=== PATIENT | female | born 1960 | race Caucasian/White ===

== ENCOUNTER 2017-09-20 17:51 | Emergency (ER) | payer BC ==
[~2017-09-20 17:51] MED LIST: OXYBUTYNIN CHLOR5 MG PO; PANTOPRAZOLE SO40 MG PO; WELLBUTRIN PO
== END 2017-09-20 18:56 | disposition short-term general hospital (02) ==
LOC: ER 17:51
DX: Z04.3 Encounter for examination and observation following other accident (principal)

== ENCOUNTER → 2019-05-24 | Day surgery (SDC) | payer OTHER ==
[~2019-05-24] MED LIST changes: +FENTANYL CITRATE/PF 100MCG/2 ML INJ ONE; +GLUCAGON FOR INJ 1 MG VIAL ONE; +HYOSCYAMINE 0.125 MG TAB ONE; +MIDAZOLAM HCL 5 MG/ML VIAL ONE; +PROPOFOL IV EMULSION 10 MG/ML 50 ML VIAL ONE
[2019-05-24 11:30] VITALS: BP 137/99
--- NOTE | 2019-05-24 15:48 | Operative Report ---
DATE OF PROCEDURE: 05/24/2019 SURGEON: Yasmani Packer MD PROCEDURES: EGD with esophageal dilatation and biopsies and colonoscopy with polypectomy and biopsies. INDICATIONS FOR EGD: Dysphagia, bloating. INDICATIONS FOR COLONOSCOPY: Rectal bleeding, personal history of colon polyps. MEDICATIONS: The patient was done under MAC, please see anesthesiologist's note. PROCEDURE IN DETAIL: With the patient in the left lateral decubitus position, a flexible fiberoptic Olympus gastroscope was introduced into the esophagus under direct visualization without any difficulty. The esophagus grossly appeared to be within normal limits. It was dilated to size 52-[place]. The scope was then advanced with ease into the stomach. The patient is status post [place]. Anastomosis was intact. There was no evidence of marginal ulcers. The scope was advanced into the efferent loop, which was patent. One fold appeared somewhat scalloped and biopsies were obtained to rule out sprue. The scope was then withdrawn back into the gastric cuff and retroflexed, and postoperative changes were noted. The scope was then straightened out, it was subsequently withdrawn, and the patient tolerated the procedure well. IMPRESSION: 1. Esophagus dilated to size 52-[place]. 2. Status post [place]-en-Y. Anastomosis was intact. No evidence of marginal ulcers. 3. Rule out sprue. PLAN: Follow up histology. Protonix 40 mg one p.o. q.a.m. before meals. Check celiac panel. The patient was then turned around and after adequate lubrication of the anal canal, a flexible fiberoptic Olympus colonoscope was inserted into the rectum with ease and advanced all the way to the cecum. Mucosa overlying the cecum appeared to be within normal limits. The ileocecal valve was intubated and the scope was advanced into the terminal ileum. Several ulcers were noted in the terminal ileum and biopsies were obtained. The scope was then withdrawn back into the colon. It was then withdrawn slowly and one polyp was snared from the ascending colon. The transverse, descending, and sigmoid grossly appeared to be within normal limits. There were some mild inflammatory changes noted in the rectum and biopsies were obtained. The scope was then retroflexed into the distal rectum and moderate-sized internal hemorrhoids were noted, none of which was actively bleeding. The scope was then straightened out, it was subsequently withdrawn, and the patient tolerated the procedure well. IMPRESSION: 1. Ulcerated terminal ileum, biopsies obtained. 2. Ascending colon polyp snared. 3. Proctitis, mild. 4. Internal hemorrhoids, none actively bleeding. PLAN: Follow up histology. We will check IBD panel, CRP, and sedimentation rate. The patient will need small bowel series. Followup colonoscopy in 5 years. Yasmani Packer MD [facility] [place] /[id number] cc: Pantera Carrasco DO
[2019-05-29 06:10] LABS: ENDOMYSIAL ANTIBODIES, IGA Negative (Negative)
== END | disposition home or self-care (01) ==
LOC: OR 06:34
PROVIDERS: ATTEND Internal Medicine Gastroenterology
DX: K63.5 Polyp of colon (principal); D12.2 Benign neoplasm of ascending colon; R13.10 Dysphagia, unspecified; K62.5 Hemorrhage of anus and rectum; R14.0 Abdominal distension (gaseous); K52.9 Noninfective gastroenteritis and colitis, unspecified; Z01.810 Encounter for preprocedural cardiovascular examination; E11.9 Type 2 diabetes mellitus without complications; Z98.84 Bariatric surgery status; F32.9 Major depressive disorder, single episode, unspecified; F41.9 Anxiety disorder, unspecified; K21.9 Gastro-esophageal reflux disease without esophagitis; K29.70 Gastritis, unspecified, without bleeding; R03.0 Elevated blood-pressure reading, without diagnosis of hypertension; K59.09 Other constipation; Z68.29 Body mass index [BMI] 29.0-29.9, adult; R10.31 Right lower quadrant pain; D64.9 Anemia, unspecified; N39.3 Stress incontinence (female) (male); K64.8 Other hemorrhoids; K62.89 Other specified diseases of anus and rectum
CPT/HCPCS: 43239; 43450; 45380; 45385; 82784; 83516; 86140; 86256 ×2; 86671; 93005; J1610; J2250; J2704; J3010; 36415; 45378

== ENCOUNTER → 2023-09-06 | Day surgery (SDC) | payer MEDICARE ==
[~2023-09-06] MED LIST changes: +CALCIUM ACETAT667 MG PO; +EVENITY (2210 MG/2.3; +EVENITY105 MG/1.1; -FENTANYL CITRATE/PF 100MCG/2 ML INJ ONE; -GLUCAGON FOR INJ 1 MG VIAL ONE; -HYOSCYAMINE 0.125 MG TAB ONE; +LACTATED RINGER'S 1,000 ML ONE; -MIDAZOLAM HCL 5 MG/ML VIAL ONE; +PROPOFOL IV EMULSION 10 MG/ML 20 ML VIAL ONE; -PROPOFOL IV EMULSION 10 MG/ML 50 ML VIAL ONE; +VITAMIN B-121000 MC2 INJ; +VITAMIN D31 ML
[2023-09-06 08:30] VITALS: TEMP 98.1
[2023-09-06 09:15] VITALS: BP 146/84; PULSE 69; RESP 15; O2SAT 96
[2023-09-07 13:15] LABS: C-REACTIVE PROTEIN 19 mg/L (0-10)
[2023-09-11 20:59] LABS: ATYPICAL pANCA TITER <1:20 titer (Neg:<1:20); SACCHAROMYCES CEREVISIAE IGA 21.6 Units (0.0-24.9)
== END | disposition home or self-care (01) ==
LOC: OR 06:13
PROVIDERS: ATTEND Internal Medicine Gastroenterology
DX: Z09 Encounter for follow-up examination after completed treatment for conditions other than malignant neoplasm (principal); Z86.010 Personal history of colon polyps; K52.89 Other specified noninfective gastroenteritis and colitis; K63.89 Other specified diseases of intestine; K59.09 Other constipation; K57.30 Diverticulosis of large intestine without perforation or abscess without bleeding; K64.8 Other hemorrhoids; K21.9 Gastro-esophageal reflux disease without esophagitis; Z71.3 Dietary counseling and surveillance; Z71.89 Other specified counseling; Z98.84 Bariatric surgery status; F32.A Depression, unspecified; Z79.899 Other long term (current) drug therapy; Z68.29 Body mass index [BMI] 29.0-29.9, adult; Z86.2 Personal history of diseases of the blood and blood-forming organs and certain disorders involving the immune mechanism
CPT/HCPCS: 45380; 86140; 86256; 86671; 93005; J2704; J7121; 45378